=== PATIENT | male | born 1995 | race Caucasian/White ===

== ENCOUNTER 2023-11-21 13:30 | Inpatient (IN) | payer MEDICAID, SELFPAY ==
[2023-11-21 13:34] VITALS: BP 129/73; PULSE 84; RESP 18; TEMP 36.4; O2SAT 98; BMI 16.9
[2023-11-21 13:51] LABS: Basophils % 0.6 %; Eosinophils % 0.4 %; Hematocrit 48.1 % (37-53); Lymphocytes # 1.4 10^3/uL (0.8-4.8); Mean Corpuscular HGB Conc 33.1 g/dL (30-55); Mean Corpuscular Hemoglobin 30.6 pg (27-33); Mean Corpuscular Volume 92.7 fl (82-101); Monocytes # 0.5 10^3/uL (0.2-0.9); Monocytes % 7.1 %; Neutrophils # 5.26 10^3/uL (1.8-7.7); Neutrophils % 72.8 %; Nucleated Red Blood Cells % 0 %; Platelet Count 195 10^3/cmm (157-399); Red Blood Count 5.19 10^6/uL (3.85-5.65); Red Cell Distribution Width 12.4 % (12.1-15.1); White Blood Count 7.22 10^3/uL (3.29-11.43)
[2023-11-21 14:07] LABS: Alanine Aminotransferase 12 U/L (0-41); Albumin Level 5.2 g/dL (3.5-5.2); Alkaline Phosphatase 57 U/L (40-130); Anion Gap 13.1 (5-19); Aspartate Amino Transferase 17 U/L (0-40); Blood Urea Nitrogen 9 mg/dL (6-20); Calcium 10.6 mg/dL (8.5-10.5); Carbon Dioxide 27 mmol/L (22-29); Chloride 103 mmol/L (98-107); Glomerular Filtration Rate 99.1 mL/min (90-130); Glucose 97 mg/dL (65-115); Osmolality Calculated 287 mOsm/kg (285-295); Potassium 4.1 mmol/L (3.5-5.1); Salicylate 2.1 mg/dL (3-10); Sodium 139 mmol/L (136-145); Total Bilirubin 0.6 mg/dL (0.15-1.2); Total Protein 8.2 g/dL (6.6-8.7)
[2023-11-21 14:08] LABS: Acetaminophen < 5.0 ug/mL (10-30); Alcohol Level < 10 mg/dL (0-10)
--- NOTE | 2023-11-21 14:10 | ED.C_ITS ---
HPI - Psych 2 General: Chief Complaint: Psychiatric Symptoms Stated Complaint: SI Time Seen by Provider: 11/21/23 13:33 Source: patient Mode of arrival: ambulatory Limitations: no limitations History of Present Illness: 28-year-old male states over the last ye ar he has been having lots of anxiety along with anger issues and homicidal thoughts. He states that he does not like the way the world is going and he does not like people anymore and he just has thoughts of harming people at times. He supposed be on meds for anxiety ADHD has not been taking them he was seen at [facility] before and was sent here for admission. He denies any suicidal ideations Associated symptoms: Reports homicidal ideation Review of Systems 2 Const: Denies: fever(s), chills, body aches or change in appetite ENMT: Denies: throat pain or dental pain Card: Denies: chest pain Resp: Denies: dyspnea GI: Denies: abdominal pain, nausea, vomiting or diarrhea Musc: Denies: neck pain or back pain Skin/Breast: Denies: rash Neuro: Denies: headache(s) Psych: Reports: anxiety, mood swings and homicidal ideation Physical Exam 2 Const: COMMON NORMALS: no acute distress, patient oriented x3 and healthy appearing HENMT: COMMON NORMALS: normocephalic and atraumatic HEAD & SCALP: n ormocephalic and atraumatic Eye: COMMON NORMALS: Equal, round and reactive pupils present and EOMs intact bilaterally PUPIL: Yes Equal, round and reactive pupils present Neck/C-Spine: COMMON NORMALS: full ROM and supple Chest: COMMONS NORMALS: normal inspection of the chest Resp: COMMON NORMALS: normal respiratory effort Cardio: COMMON NORMALS: regular rate, regular rhythm and No murmurs present (Cardio) RATE: regular rate RHYTHM: regular rhythm Extremity: COMMON NORMALS: normal to inspection and full ROM Neuro: COMMON NORMALS: patient oriented x3, moves all extremities and no focal motor deficits Psych: COMMON NORMALS: mental status grossly normal and cooperative MOOD & AFFECT: Yes irritable Skin: COMMON NORMALS: no rashes or lesions noted and no wounds GENERAL SKIN EXAM: no rashes or lesions noted Course 2 Vital Signs: Vital signs: Vital Signs Temperature 97.6 F 11/21/23 13:34 Pulse Rate 64 11/21/23 16:26 Respiratory Rate 18 11/21/23 13:34 Blood Pressure 124/87 11/21/23 16:26 Pulse Oximetry 97 11/21/23 16:26 Oxygen Delivery Me thod Room Air 11/21/23 13:34 MDM - Psych Medical Decision Making Patient presents with anxiety along with homicidal ideations I spoke to the psychiatrist patient is voluntarily want to be admitted blood work here is all normal. Medical Records I reviewed the patient's medical records. Lab Data I reviewed the patient's lab results. 11/21/23 13:43 11/21/23 13:43 Laboratory Results WBC 7.22 10^3/uL (3.29-11.43) 11/21/23 13:43 RBC 5.19 10^6/uL (3.85-5.65) 11/21/23 13:43 Hgb 15.90 g/dL (11.27-16.99) 11/21/23 13:43 Hct 48.1 % (37-53) 11/21/23 13:43 MCV 92.7 fl (82-101) 11/21/23 13:43 MCH 30.6 pg (27-33) 11/21/23 13:43 MCHC 33.1 g/dL (30-55) 11/21/23 13:43 RDW 12.4 % (12.1-15.1) 11/21/23 13:43 Plt Count 195 10^3/cmm (157-399) 11/21/23 13:43 MPV 11.0 fL (7.4-10.4) H 11/21/23 13:43 Neut % (Auto) 72.8 % 11/21/23 13:43 Lymph % (Auto) 19.0 % 11/21/23 13:43 Millard % (Auto) 7.1 % 11/21/23 13:43 Eos % (Auto) 0.4 % 11/21/23 13:43 Baso % (Auto) 0.6 % 11/21/23 13:43 Neut # (Auto) 5.26 10^3/uL (1.8-7.7) 11/21/23 13:43 Lymph # (Auto) 1.4 10^3/uL (0.8-4.8) 11/21/23 13:43 Millard # (Auto) 0.5 10^3/uL (0.2-0.9) 11/21/23 13:43 Eos # (Auto) 0.0 10^3/uL (0.0-0.8) 11/21/23 13:43 Baso # (Auto) 0.0 10^3/uL (0.0-0.1) 11/21/23 13:43 Nucleated RBC % (auto) 0 % 11/21/23 13:43 Nucleated RBCs # 0.0 /100WBC 11/21/23 13:43 Sodium 139 mmol/L (136-145) 11/21/23 13:43 Potassium 4.1 mmol/L (3.5-5.1) 11/21/23 13:43 Chloride 103 mmol/L (98-107) 11/21/23 13:43 Carbon Dioxide 27 mmol/L (22-29) 11/21/23 13:43 Anion Gap 13.1 (5-19) 11/21/23 13:43 BUN 9 mg/dL (6-20) 11/21/23 13:43 Creatinine 0.9 mg/dL (0.7-1.2) 11/21/23 13:43 GFR Calculation 99.1 mL/min (90-130) 11/21/23 13:43 Glucose 97 mg/dL (65-115) 11/21/23 13:43 Calculated Osmolality 287 mOsm/kg (285-295) 11/21/23 13:43 Calcium 10.6 mg/dL (8.5-10.5) H 11/21/23 13:43 Total Bilirubin 0.6 mg/dL (0.15-1.2) 11/21/23 13:43 AST 17 U/L (0-40) 11/21/23 13:43 ALT 12 U/L (0-41) 11/21/23 13:43 Alkaline Phosphatase 57 U/L (40-130) 11/21/23 13:43 Total Protein 8.2 g/dL (6.6-8.7) 11/21/23 13:43 Albumin 5.2 g/dL (3.5-5.2) 11/21/23 13:43 Globulin 3.0 g/dL (1.3-4.6) 11/21/23 13:43 Salicylates 2.1 mg/dL (3-10) L 11/21/23 13:43 Acetaminophen < 5.0 ug/mL (10-30) L 11/21/23 13:43 Ethyl Alcohol < 10 mg/dL (0-10) 11/21/23 13:43 No radiology studies performed this visit Discharge Plan Discharge Patient Disposition: Admitted As Inpatient Admit Provider: Ziggy Grover Clinical Impression: Homicidal ideations, Anxiety Condition: Stable Coding Level of Care Code ED Chalk Machine Operator for Alek Ovalles
--- NOTE | 2023-11-21 14:34 | PC.PHAR ---
PT STS HE TOOK TWO MUSCLE RELAXERS THIS MORNING- DOES NOT KNOW THE NAME OR STRENGTH OF MEDICATION
[2023-11-21 15:52] LABS: Amphetamines Screen Urine Negative (Negative); Barbiturates Screen Urine Negative (Negative); Benzodiazepines Screen Urine Negative (Negative); Cocaine Screen Urine Negative (Negative); Opiate Screen Urine Negative (Negative); PCP Screen Urine Negative (Negative); THC Screen Urine Positive (Negative)
[2023-11-21 16:26] VITALS: BP 124/87; PULSE 64; O2SAT 97
[2023-11-21] MEDS: nicotine 2 mg Gum BUCCAL (17:43)
[2023-11-21] MEDS: hyDROXYzine 25 mg Capsule 50 MG PO (18:17)
[2023-11-21 21:02] VITALS: BP 103/64; PULSE 72; RESP 18; TEMP 36.8; O2SAT 98
[2023-11-22 06:00] VITALS: BP 101/69; PULSE 95; RESP 16; O2SAT 98
[2023-11-22] MEDS: nicotine 2 mg Gum BUCCAL ×2 (06:31→08:42)
--- NOTE | 2023-11-22 10:38 | P.NPUHP_ITS ---
Providers/Chief Complaint 2 Admitting Physician: Ziggy Grover MD Chief Complaint: SI HPI NPU History of Present Illness J Luis Ramirez is a 28 year old male who was evaluated at [facility] on 11/21/2023 and was brought to the emergency department after the patient had endorsed depression and having thoughts of harming people at times. The patient was admitted to the neuropsychiatric unit for further evaluation and treatment. The patient minimizes having suicidal thoughts. He reports that he has been depressed for years. He reports anhedonia and often feeling depressed depressed and down nearly every day. He reports having difficulties with falling asleep and staying asleep. He reports often feeling tired with low energy and reports that he often has diminished appetite. He reports that he frequently feels bad about himself and often struggles with concentration. He reports that he has chronic problems with managing his worry as he described himself as a worrywart. He reports that he often has muscle tension and often feels restless. He reports that he struggles with managing chronic worry and that it often makes him irritable. He had reported that he had history since childhood of problems with staying on task. He reports being distracted easily and states that he often daydreams. He endorsed that he struggles with completing projects as he reports that he starts projects and doesn not end up being able to complete them. He had reported previously taking Adderall for a few years and stated that it had been helpful for his ADHD. He reports no active drug or alcohol use other than marijuana use. He denies any history of manic symptoms nor does he endorse any history of psychosis. He denied any clear symptoms suggestive of PTSD. He does report current stressors have made his depression worse includes being around his mother and often having disagreements philosophically with how they live their life. He had endorsed at times having thoughts of being better off but states that he would never hurt himself. He does acknowledge having problems with anger but reports no problems with harming himself but reports having verbal disagreements and frequent problems with irritability particularly regarding his worries. Patient had endorsed having a panic attack a week ago for the first time with associated chest pain and numbing and tingling in his fingers that lasted for several hours without any clear trigger. He has reported having increased problems with managing his worry over the last year. Inpatient psychiatric history: None Outpatient psychiatric history: He has recently been evaluated at the [facility] with plans for psychotherapy and medication management. He had reported previous trials for treating depression in the past including Zoloft which she had described as having given him headaches and abdominal discomfort after taking it for several months. He also reported previous trial of Wellbutrin for depression unsuccessfully. He had reported having previously been treated with Adderall XR to target ADHD which she states had been helpful. Current medications: None Medical history: Scoliosis Surgical history: Appendectomy Drug and alcohol history: He reports only occasional alcohol use. He reports daily use of marijuana for several years. He had reported no history of stimulant abuse although he stated that he had experimented in the past with some recreational drugs previously. He has no history of drug or alcohol rehabilitation. Allergies: No known drug allergies Legal history: None Family psychiatric history: Patient reports that his mother has been diagnosed with bipolar disorder along with his brother who also has been diagnosed with bipolar disorder. Patient's biological brother had completed suicide at the age of 17. He also reports completed suicide in his maternal cousin. Social history: The patient was born in [facility]. He states that he had resided with both of his parents until they had split up when he was a toddler. He had reported that he had lived with his mother and stepfather and had lived in [place] where he had graduated high school. He did not require any special education and reported engaging in minimal amounts of work in order to complete his high school. He had reported that he had tried community college briefly but stated that he had struggled in a dropped out of college. He states that he had been living in [place] for the past 8 years until moving back here at the end of 2021. 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 He states that he currently lives with his mother and stepfather and describes having significant disagreements in the household. He had reported that his brother had completed suicide when the patient was only 17 years old. He reports that he is currently seeking jobs. He does not have any children and is never been . He describes himself is caodaism. Meds NPU Home Medications Medication Instructions Recorded Confirmed Last Taken Type No Known Home Medications 11/21/23 11/21/23 Unknown History Allergies Allergy/AdvReac Type Severity Reaction Status Date / Time No Known Allergies Allergy Unverified 11/21/23 14:34 Mental Status Exam 2 MSE Comments: He is a casually dressed white male fully bearded with unkempt hair, and adequate hygiene. He was friendly and cooperative on interview. He was alert and oriented to person place time and situation. His gait was within normal limits. There was no evidence of any abnormal involuntary motor movements tics or tremors appreciated. His speech was normal in regards to rate rhythm and prosody. His thought process was linear logical and goal-directed. He had minimized any homicidal or suicidal ideation. He did not appear to be responding to internal stimuli. There was no clear evidence of delusional thinking. His mood was described as depressed. His affect appeared restricted in range and mood congruent. His recent and remote memory were grossly intact. His insight was limited. His judgment was poor. His impulse control appeared poor as well. Vitals/I&O/Wt Last Vital Signs Temp 98.3 F 11/21/23 21:02 Pulse 95 11/22/23 06:00 Resp 16 11/22/23 06:00 BP 101/69 11/22/23 06:00 Pulse Ox 98 11/22/23 06:00 O2 Del Method Room Air 11/22/23 06:00 Weight last 48 hrs Weight 52.163 kg Data NPU 11/21/23 13:43 11/21/23 13:43 A&P Assessment and plan (1) MDD (major depressive disorder), recurrent severe, without psychosis: (2) CECILY (generalized anxiety disorder): (3) ADHD (attention deficit hyperactivity disorder): (4) Homicidal ideations: Plan 28-year-old male admitted with concerns about homicidal ideation with symptoms largely suggestive of generalized anxiety disorder, major depressive disorder, and ADHD currently on no medications. 1. Encourage individual, group and milieu therapy. 2. Recommend sober living treatment at the highest level of care to which the patient is willing to commit. 3. Continue q-15 minute checks for safety.? 4.? Will initiate lexapro 10mg daily to target CECILY and MDD symptoms. Trial of Ritalin 10mg tid to target adhd symptoms. 5.? Will attempt to gather collateral information. Involuntary Hold Information 2 96 Hour Hold: 96 Hour Involuntary Admission: No Attestations NPU 2 Medical Necessity Statement*: Inpatient hospitalization is medically necessary and deemed to be the clinically appropriate intervention at this time. Medications will be initiated and adjusted as clinically indicated. Patient will be hospitalized for at least 2 midnights. Patient's likely length of stay is 2 to 3 days. Coding Level of Care Code Acute Code for Chg Fwd Diagnoses MDD (major depressive disorder), recurrent severe, without psychosis F33.2 CECILY (generalized anxiety disorder) F41.1 ADHD (attention deficit hyperactivity disorder) F90.9 Homicidal ideations R45.850
[2023-11-22] MEDS: methylphenidate 10 mg Tablet PO (11:37)
[2023-11-22] MEDS: escitalopram 10 mg Tablet PO (11:37)
[2023-11-22 14:00] VITALS: BP 126/79; PULSE 69; RESP 16; TEMP 36.6; O2SAT 100
[2023-11-22] MEDS: nicotine 4 mg lozenge MUCOUS MEM ×2 (16:10→20:01)
[2023-11-22 19:47] VITALS: BP 122/65; PULSE 103; RESP 18; TEMP 36.3; O2SAT 97
[2023-11-23 06:00] VITALS: BP 107/72; PULSE 71; RESP 18; TEMP 36.7; O2SAT 98
[2023-11-23] MEDS: methylphenidate 10 mg Tablet PO ×2 (08:12→12:30)
[2023-11-23] MEDS: escitalopram 10 mg Tablet PO (08:12)
[2023-11-23] MEDS: nicotine 2 mg Gum BUCCAL (08:12)
--- NOTE | 2023-11-23 09:26 | PC.NURSE ---
SITTING IN BED DRINKING COFFEE. PT IS CALM AND COOPERATIVE. DENIES SI/HI AND AVH AT THIS TIME. DENIES PAIN. RATES ANXIETY 4/10 AND DEPRESSION 3/10. ALL QUESTIONS ANSWERED AND SUPPORT VOICED.
[2023-11-23] MEDS: nicotine 4 mg lozenge MUCOUS MEM ×4 (10:14→18:20)
[2023-11-23 14:00] VITALS: BP 124/68; PULSE 101; RESP 16; TEMP 36.4; O2SAT 96
--- NOTE | 2023-11-23 17:22 | W.PM.NPUPNS ---
Subjective NPU Subjective: 28-year-old male with a history of ADHD, major depressive disorder and generalized anxiety disorder admitted with questionable homicidal threats. Patient reported no side effects from his Lexapro. He reported no side effects from the short acting methylphenidate for treating ADHD. He had denied any current change and still reported that he felt depressed. He reported having problems problems with anxiety but stated that he was a chronic worrier. Patient had reported continued struggles with attention. He had also reported having problems with low motivation and low energy.He had described being easily bored. Mental Status Exam MSE Comments: He is a casually dressed white male fully bearded with unkempt hair, and adequate hygiene. He was friendly and cooperative on interview. He was alert and oriented to person place time and situation. His gait was within normal limits. There was no evidence of any abnormal involuntary motor movements tics or tremors appreciated. His speech was normal in regards to rate rhythm and prosody. His thought process was linear logical and goal-directed. He had minimized any homicidal or suicidal ideation. He did not appear to be responding to internal stimuli. There was no clear evidence of delusional thinking. His mood was described as a little better. His affect appeared restricted in range and mood congruent. His recent and remote memory were grossly intact. His insight was limited. His judgment was poor. His impulse control appeared poor as well. His attention span was poor. Vitals/I&O/Wt Last Vital Signs Temp 97.6 F 11/23/23 14:00 Pulse 101 H 11/23/23 14:00 Resp 16 11/23/23 14:00 BP 124/68 11/23/23 14:00 Pulse Ox 96 11/23/23 14:00 O2 Del Method Room Air 11/23/23 14:00 Weight last 48 hrs Weight 50.916 kg Weight 50.916 kg Data NPU 11/21/23 13:43 11/21/23 13:43 A&P Assessment and plan (1) MDD (major depressive disorder), recurrent severe, without psychosis: (2) CECILY (generalized anxiety disorder): (3) ADHD (attention deficit hyperactivity disorder): (4) Homicidal ideations: Plan 28-year-old male admitted with concerns about homicidal ideation with symptoms largely suggestive of generalized anxiety disorder, major depressive disorder, and ADHD currently on no medications. 1. Encourage individual, group and milieu therapy. 2. Recommend sober living treatment at the highest level of care to which the patient is willing to commit. 3. Continue q-15 minute checks for safety.? 4.? Continue lexapro 10mg daily to target CECILY and MDD symptoms. Trial of Ritalin 10mg tid to target adhd symptoms. 5.? Will attempt to gather collateral information. Involuntary Hold Information 96 Hour Hold: 96 Hour Involuntary Admission: No Attestations NPU Medical Necessity Statement*: Inpatient hospitalization is medically necessary and deemed to be the clinically appropriate intervention at this time. Medications will be initiated and adjusted as clinically indicated. The patient's likely length of stay is 2 to 3 days. Coding Level of Care Code Acute Code for [facility] Fwd Diagnoses MDD (major depressive disorder), recurrent severe, without psychosis F33.2 CECILY (generalized anxiety disorder) F41.1 ADHD (attention deficit hyperactivity disorder) F90.9 Homicidal ideations R45.850
[2023-11-23 19:23] VITALS: BP 111/66; PULSE 82; RESP 18; TEMP 36.8; O2SAT 97
[2023-11-24 06:00] VITALS: BP 108/72; PULSE 89; RESP 18; O2SAT 98
[2023-11-24] MEDS: nicotine 4 mg lozenge MUCOUS MEM ×2 (07:32→10:47)
[2023-11-24] MEDS: methylphenidate 10 mg Tablet PO ×2 (08:25→11:22)
[2023-11-24] MEDS: escitalopram 10 mg Tablet PO (08:25)
--- NOTE | 2023-11-24 12:06 | W.PM.NPUDCS ---
Diagnoses at Discharge Discharge Diagnosis (1) MDD (major depressive disorder), recurrent severe, without psychosis: Status: Acute (2) CECILY (generalized anxiety disorder): Status: Acute (3) ADHD (attention deficit hyperactivity disorder): Status: Acute (4) Homicidal ideations: Status: Acute Reason for Visit Reason for Visit: SI Brief History: History of Present Illness J Luis Ramirez is a 28 year old male who was evaluated at [facility] on 11/21/2023 and was brought to the emergency department after the patient had endorsed depression and having thoughts of harming people at times. The patient was admitted to the neuropsychiatric unit for further evaluation and treatment. The patient minimizes having suicidal thoughts. He reports that he has been depressed for years. He reports anhedonia and often feeling depressed depressed and down nearly every day. He reports having difficulties with falling asleep and staying asleep. He reports often feeling tired with low energy and reports that he often has diminished appetite. He reports that he frequently feels bad about himself and often struggles with concentration. He reports that he has chronic problems with managing his worry as he described himself as a worrywart. He reports that he often has muscle tension and often feels restless. He reports that he struggles with managing chronic worry and that it often makes him irritable. He had reported that he had history since childhood of problems with staying on task. He reports being distracted easily and states that he often daydreams. He endorsed that he struggles with completing projects as he reports that he starts projects and doesn not end up being able to complete them. He had reported previously taking Adderall for a few years and stated that it had been helpful for his ADHD. He reports no active drug or alcohol use other than marijuana use. He denies any history of manic symptoms nor does he endorse any history of psychosis. He denied any clear symptoms suggestive of PTSD. He does report current stressors have made his depression worse includes being around his mother and often having disagreements philosophically with how they live their life. He had endorsed at times having thoughts of being better off but states that he would never hurt himself. He does acknowledge having problems with anger but reports no problems with harming himself but reports having verbal disagreements and frequent problems with irritability particularly regarding his worries. Patient had endorsed having a panic attack a week ago for the first time with associated chest pain and numbing and tingling in his fingers that lasted for several hours without any clear trigger. He has reported having increased problems with managing his worry over the last year. Inpatient psychiatric history: None Outpatient psychiatric history: He has recently been evaluated at the [facility] with plans for psychotherapy and medication management. He had reported previous trials for treating depression in the past including Zoloft which she had described as having given him headaches and abdominal discomfort after taking it for several months. He also reported previous trial of Wellbutrin for depression unsuccessfully. He had reported having previously been treated with Adderall XR to target ADHD which she states had been helpful. Current medications: None Medical history: Scoliosis Surgical history: Appendectomy Drug and alcohol history: He reports only occasional alcohol use. He reports daily use of marijuana for several years. He had reported no history of stimulant abuse although he stated that he had experimented in the past with some recreational drugs previously. He has no history of drug or alcohol rehabilitation. Allergies: No known drug allergies Legal history: None Family psychiatric history: Patient reports that his mother has been diagnosed with bipolar disorder along with his brother who also has been diagnosed with bipolar disorder. Patient's biological brother had completed suicide at the age of 17. He also reports completed suicide in his maternal cousin. Social history: The patient was born in [facility]. He states that he had resided with both of his parents until they had split up when he was a toddler. He had reported that he had lived with his mother and stepfather and had lived in [place] where he had graduated high school. He did not require any special education and reported engaging in minimal amounts of work in order to complete his high school. He had reported that he had tried community college briefly but stated that he had struggled in a dropped out of college. He states that he had been living in [place] for the past 8 years until moving back here at the end of 2021. He had worked in a variety of jobs in [place] including working in a half-way. He states that he currently lives with his mother and stepfather and describes having significant disagreements in the household. He had reported that his brother had completed suicide when the patient was only 17 years old. He reports that he is currently seeking jobs. He does not have any children and is never been . He describes himself is confucianism. Hospital Course Hospital Course During the hospitalization, the patient had routine laboratory studies which were within normal limits except for a few outliers.? Additionally, there was a general medical evaluation which was also within normal limits and revealed no new acute processes.? At the time of discharge, lethality was denied and mood appeared much improved.? Patient had shown evidence of chronic ADHD and Ritalin was started and titrated up to 10mg three times a day with a plan to begin long acting concerta once a day on discharge. Patient was started on lexapro to target depression. Mood and anxiety were well managed.? The patient endorsed a plan to avoid all drugs of abuse and follow up with the aftercare recommendations of the treatment team.? The patient was evaluated and deemed to be absent credible lethality and had achieved the maximum benefit from an inpatient hospitalization, and so was discharged.? Involuntary Hold Information 96 Hour Hold: 96 Hour Involuntary Admission: No Mental Status Exam MSE Comments: He is a casually dressed white male fully bearded with unkempt hair, and adequate hygiene. He was friendly and cooperative on interview. He was alert and oriented to person, place, time and situation. His gait was within normal limits. There was no evidence of any abnormal involuntary motor movements tics or tremors appreciated. His speech was normal in regards to rate rhythm and prosody. His thought process was linear logical and goal-directed. He had minimized any homicidal or suicidal ideation. He did not appear to be responding to internal stimuli. There was no clear evidence of delusional thinking. His mood was described as good. His affect appeared brighter on discharge. His recent and remote memory were grossly intact. His insight was improved. His judgment was fair. His impulse control appeared improved on discharge. His attention span was improved. Discharge Data Studies Completed and Pending: Laboratory Results WBC 7.22 10^3/uL (3.2 9-11.43) 11/21/23 13:43 RBC 5.19 10^6/uL (3.8 5-5.65) 11/21/23 13:43 Hgb 15.90 g/dL (11.27 -16.99) 11/21/23 13:43 Hct 48.1 % (37-53) 11/21/23 13:43 MCV 92.7 fl (82-101) 11/21/23 13:43 MCH 30.6 pg (27-33) 11/21/23 13:43 MCHC 33.1 g/dL (30-55) 11/21/23 13:43 RDW 12.4 % (12.1-15.1 ) 11/21/23 13:43 Plt Count 195 10^3/cmm (157 -399) 11/21/23 13:43 MPV 11.0 fL (7.4-10.4 ) H 11/21/23 13:43 Neut % (Auto) 72.8 % 11/21/23 13:43 Lymph % (Auto) 19.0 % 11/21/23 13:43 [place] % (Auto) 7.1 % 11/21/23 13:43 Eos % (Auto) 0.4 % 11/21/23 13:43 Baso % (Auto) 0.6 % 11/21/23 13:43 Neut # (Auto) 5.26 10^3/uL (1.8 -7.7) 11/21/23 13:43 Lymph # (Auto) 1.4 10^3/uL (0.8- 4.8) 11/21/23 13:43 [place] # (Auto) 0.5 10^3/uL (0.2- 0.9) 11/21/23 13:43 Eos # (Auto) 0.0 10^3/uL (0.0- 0.8) 11/21/23 13:43 Baso # (Auto) 0.0 10^3/uL (0.0- 0.1) 11/21/23 13:43 Nucleated RBC % (a uto) 0 % 11/21/23 13:43 Nucleated RBCs # 0.0 /100WBC 11/21/23 13:43 Sodium 139 mmol/L (136-1 45) 11/21/23 13:43 Potassium 4.1 mmol/L (3.5-5 .1) 11/21/23 13:43 Chloride 103 mmol/L (98-10 7) 11/21/23 13:43 Carbon Dioxide 27 mmol/L (22-29) 11/21/23 13:43 Anion Gap 13.1 (5-19) 11/21/23 13:43 BUN 9 mg/dL (6-20) 11/21/23 13:43 Creatinine 0.9 mg/dL (0.7-1. 2) 11/21/23 13:43 GFR Calculation 99.1 mL/min (90-1 30) 11/21/23 13:43 Glucose 97 mg/dL (65-115) 11/21/23 13:43 Calculated Osmolal ity 287 mOsm/kg (285- 295) 11/21/23 13:43 Calcium 10.6 mg/dL (8.5-1 0.5) H 11/21/23 13:43 Total Bilirubin 0.6 mg/dL (0.15-1 .2) 11/21/23 13:43 AST 17 U/L (0-40) 11/21/23 13:43 ALT 12 U/L (0-41) 11/21/23 13:43 Alkaline Phosphata se 57 U/L (40-130) 11/21/23 13:43 Total Protein 8.2 g/dL (6.6-8.7 ) 11/21/23 13:43 Albumin 5.2 g/dL (3.5-5.2 ) 11/21/23 13:43 Globulin 3.0 g/dL (1.3-4.6 ) 11/21/23 13:43 Salicylates 2.1 mg/dL (3-10) L 11/21/23 13:43 Urine Opiates Scre en Negative ng/mL (N egative) 11/21/23 15:23 Acetaminophen < 5.0 ug/mL (10-3 0) L 11/21/23 13:43 Ur Barbiturates Sc reen Negative ng/mL (N egative) 11/21/23 15:23 Ur Phencyclidine S crn Negative ng/mL (N egative) 11/21/23 15:23 Ur Amphetamines Sc reen Negative ng/mL (N egative) 11/21/23 15:23 U Benzodiazepines Scrn Negative ng/mL (N egative) 11/21/23 15:23 Urine Cocaine Scre en Negative ng/mL (N egative) 11/21/23 15:23 U Marijuana (THC) Screen Positive ng/mL (N egative) H 11/21/23 15:23 Ethyl Alcohol < 10 mg/dL (0-10) 11/21/23 13:43 Vitals: Last Vital Signs Temp 98.3 F 11/23/23 19:23 Pulse 89 11/24/23 06:00 Resp 18 11/24/23 06:00 BP 108/72 11/24/23 06:00 Pulse Ox 98 11/24/23 06:00 O2 Del Method Room Air 11/24/23 06:00 Discharge Plan Discharge Patient Disposition: Home Condition: Stable Prescriptions: New escitalopram oxalate 10 mg Tablet 10 mg PO DAILY 30 Days Qty: 30 1RF Concerta 36 mg tablet extended release 24hr 36 mg PO QAM Qty: 30 0RF Discharge Orders: Discharge Order (Routine); Ordered 11/24/23 Ordered By: Ziggy Grover Discharge Diet: Usual diet Discharge Activity: Resume usual activity Patient Instructions: Depression, Methylphenidate, Regular and Slow Release (By mouth) (Ritalin,..., Escitalopram (By mouth), ADHD in Adults (DC), Opioid Safety Discharge Attestations NPU Time Spent in Discharge Care*: less than 30 min Specific Discharge Activities: Specific discharge activities: educating patient, documenting/other paperwork and evaluating patient/reviewing data Coding Level of Care Code Acute Code for Chg Fwd Diagnoses MDD (major depressive disorder), recurrent severe, without psychosis F33.2 CECILY (generalized anxiety disorder) F41.1 ADHD (attention deficit hyperactivity disorder) F90.9 Homicidal ideations R45.850
[2023-11-24 12:13] VITALS: BP 108/72; PULSE 89; RESP 18; O2SAT 98
--- NOTE | 2023-11-25 09:07 | PC.OT ---
OT EVALUATION ORDERS RECEIVED. PATIENT D/C BEFORE EVALUATION COULD BE COMPLETED
== END 2023-11-24 13:23 | disposition home or self-care (01) | DRG 885 ==
LOC: ER 15:04 → NP 15:32
PROVIDERS: Admitting Provider Psychiatry & Neurology Psychiatry; Emergency Provider Emergency Medicine; Visit Provider Psychiatry & Neurology Psychiatry
DX: F33.2 Major depressive disorder, recurrent severe without psychotic features (principal); F41.1 Generalized anxiety disorder; R45.850 Homicidal ideations; F90.9 Attention-deficit hyperactivity disorder, unspecified type
CPT/HCPCS: 36415; 80053; 80306; 80307; 85025; 99285

== ENCOUNTER → 2024-01-26 11:11 | Outpatient (BNVA) | payer MEDICAID, SELFPAY | PROVIDERS: Visit Provider Nurse Practitioner Psychiatric/Mental Health | DX: Z79.899 Other long term (current) drug therapy (principal) | CPT/HCPCS: 80053; 80061; 83036 ==